=== PATIENT | male | born 1955 | race Caucasian/White ===

== ENCOUNTER 2018-02-07 09:39 | Emergency (ER) | payer OTHER ==
[~2018-02-07] VITALS: Ht 162.6 cm; Wt 90.0 kg
[2018-02-07] MEDS ORDERED: INSULIN (09:48)
[2018-02-07] MEDS ORDERED: KETOROLAC 30MG/ML VIAL IM ONE (11:00)
[2018-02-07] MEDS ORDERED: CYCLOBENZAPRINE 10MG TABLET PO ONE (11:00)
[2018-02-07 12:19] VITALS: BP 180/93
== END 2018-02-07 12:21 | disposition home or self-care (01) ==
LOC: ER 09:39
DX: M54.5 Low back pain (principal); G89.29 Other chronic pain; M54.9 Dorsalgia, unspecified; E11.9 Type 2 diabetes mellitus without complications; I10 Essential (primary) hypertension; Z79.4 Long term (current) use of insulin
CPT/HCPCS: 96372; 99283; J1885